=== PATIENT | male | born 1965 | race Caucasian/White ===

== ENCOUNTER 2023-12-14 11:07 | Emergency (ER) | payer SELFPAY ==
[~2023-12-14] VITALS: Ht 172.7 cm; Wt 65.9 kg
[2023-12-14] MEDS: SODIUM CHLORIDE 0.9% 1,000 ML IV ONE (11:48)
[2023-12-14 11:59] LABS: Magnesium 1.3 mg/dL (1.6-2.6)
[2023-12-14] MEDS ORDERED: THIAMINE HCL 100 MG TAB PO ONE (12:00)
[2023-12-14 12:13] LABS: Lactic Acid w/Reflex 2.6 mmol/L (0.4-2.0)
[2023-12-14 12:21] LABS: Blood Alcohol 447.9 mg/dL (<10)
[2023-12-14 12:38] LABS: Basophils # (auto) 0 10 ^3/uL (0-0.2); Eosinophils # (auto) 0 10 ^3/uL (0-0.8); Lymphocytes # (auto) 0.6 10 ^3/uL (0.4-5.4); Mean Corpuscular Hemoglobin 37.6 pg (28.0-32.0); Mean Corpuscular Hgb Conc. 33.7 g/dL (32.0-36.0); Mean Corpuscular Volume 111.6 fL (80.0-100.0); Monocytes # (auto) 0.4 10 ^3/uL (0-1.3); Neutrophils # (auto) 4.4 10 ^3/uL (1.6-8.6)
[2023-12-14 12:40] LABS: Basophils % (auto) 0.8 % (0.0-2.0); Eosinophils % (auto) 0.5 % (0.0-7.0); Hematocrit 44.2 % (41.0-53.0); Hemoglobin 14.9 g/dL (13.5-17.5); Lymphocytes % (auto) 10.2 % (10.0-50.0); Monocytes % (auto) 7.8 % (0.0-12.0); Neutrophils % (auto) 80.7 % (37.0-80.0); Red Blood Cells 3.96 10^6/uL (4.5-5.90); White Blood Cell 5.4 10^3/uL (4.4-10.8)
[2023-12-14 12:49] LABS: Alanine Aminotransferase 48 U/L (7-40); Albumin 4.6 g/dL (3.2-4.8); Alkaline Phosphatase 64 U/L (46-116); Anion Gap 11 (5-15); Aspartate Aminotransferase 110 U/L (13-40); BUN/Creatinine Ratio 29.5 (10.0-20.0); Bilirubin, Total 0.9 mg/dL (0.2-1.0); Blood Urea Nitrogen 18 mg/dL (9-23); Carbon Dioxide 26 mmol/L (20-30); Chloride 105 mmol/L (98-107); Glucose 94 mg/dL (74-106); Potassium 3.5 mmol/L (3.5-5.1); Sodium 142 mmol/L (136-145); Total Protein 7.2 g/dL (5.7-8.2)
[2023-12-14] MEDS ORDERED: SODIUM CHLORIDE 0.9% 1,000 ML IV ONE (13:15)
[2023-12-14 13:46] LABS: Macrocytosis Moderate; Platelet Estimate Decreased
[2023-12-14 14:52] VITALS: BP 128/76; PULSE 98; RESP 18; O2SAT 98
== END 2023-12-14 14:51 | disposition left against medical advice (07) ==
LOC: EDBD 11:07 → ER 11:18
DX: S01.81XA Laceration without foreign body of other part of head, initial encounter (principal); R93.89 Abnormal findings on diagnostic imaging of other specified body structures; R91.1 Solitary pulmonary nodule; E61.2 Magnesium deficiency; F10.129 Alcohol abuse with intoxication, unspecified; Y90.0 Blood alcohol level of less than 20 mg/100 ml
CPT/HCPCS: 36415; 70450; 71045; 72125; 80053; 80320; 82140; 82550; 83605; 83735; 83880; 84484; 85025; 96360; 99284; J7030

== ENCOUNTER 2025-01-06 22:42 | Emergency (ER) | payer SELFPAY ==
[~2025-01-06] VITALS: Ht 175.3 cm; Wt 60.4 kg
--- NOTE | 2025-01-06 23:40 | ED.PDOC ---
History of Present Illness HPI Comments 59 y/o M with a history of alcohol abuse and homelessness, presents c/o alcohol withdrawal symptoms that include: nausea, vomiting and generalized tremors. Pt states last alcohol drink was 1/2 pint of Vodka on 01/05/25. Patient also complains of left neck pain after sleeping on a bench the wrong way a few days ago. Denies any bloody or bilious vomitus, headache, dizziness, lightheadedness, or further associated symptoms. Patient states he is purposefully trying to stop drinking alcohol, but was told he needs to taper down slowly. Chief Complaint: ETOH Time Seen by MD: 23:20 Reviewed Notes: Nurses Notes, Medications, Allergies Allergies: Coded Allergies: NO KNOWN ALLERGIES (Unverified , 12/14/23) Home Meds Active Scripts Lorazepam (ATIVAN TABLET) 0.5 Mg Tb, 1 TAB PO TID PRN, #30 TAB Prn alcohol withdrawal symptoms Prov:ELIS SWANSON MD 01/07/25 Methocarbamol (Methocarbamol) 750 Mg Tab, 750 MG PO TID PRN, #30 TAB PRN muscle spasm Prov:ELIS SWANSON MD 01/07/25 Ibuprofen Micronized (Ibuprofen) 600 Mg Tab, 600 MG PO Q6HP PRN, #30 TAB Prn pain. Take with food. Prov:ELIS SWANSON MD 01/07/25 Ondansetron Odt 4MG Tab (ZOFRAN PO) 4 Mg Tb, 4 MG PO TID PRN, #30 TAB Prn nausea/vomiting ODT TAB-DISSOLVE IN MOUTH, THEN SWALLOW Prov:ELIS SWANSON MD 01/07/25 Chlordiazepoxide Hcl (Librium) 25 Mg Cp, 25 MG PO TID PRN, #30 CAP Prn alcohol withdrawal symptoms Prov:ELIS SWANSON MD 01/07/25 Information Source: Patient Mode of Arrival: Ambulatory Severity: Moderate Timing: Hours Duration: Since onset Prehospital treatment: None Past Medical History Past Medical History (Other): Alcohol dependence Surgical History: Denies all surgeries Family History Family History: Reviewed,noncontributory to illness Social History Smoker: Non-Smoker Alcohol: Heavy Drugs: Denies Drug Use Lives In: Homeless All Other Systems: Reviewed and Negative (Comprehensive review of systems are otherwise negative unless stated in HPI) Physical Exam General Appearance: No Apparent Distress HEENT: Other (Pupils and face symmetric. Moist mucous membranes.) Neck: Full Range of Motion, Normal Inspection, Supple, Other (Left lower lateral neck soft tissue tenderness/muscle spasm) Respiratory: Lungs Clear, No Accessory Muscle Use, No Respiratory Distress, Normal Breath Sounds Cardiovascular: No Edema, No JVD, Regular Rate/Rhythm Breast Exam: Deferred Gastrointestinal: Non Tender, Soft Genitalia: Deferred Pelvic: Deferred Rectal: Deferred Extremities: Normal inspection, Normal range of motion, Non-tender, No pedal edema Neurologic: Alert (Oriented x4), Normal Affect, Normal Mood, Other (Ambulatory without difficulty) Cerebellar Function: NOT DONE Reflexes: NOT DONE Skin: Dry, Normal Color, Warm Lymphatic: NOT DONE Was a procedure done? Was a procedure done?: No Differential Dx Considerations may include: alcohol withdrawal, drug abuse/dependency, delirium tremens, electrolyte imbalance, dehydration, viral syndrome, neck muscle spasm, among others X-Ray, Labs, Meds, VS Vital Signs Date Time Temp Pulse Resp B/P (MAP) Pulse Ox O2 Delivery O2 Flow Rate FiO2 01/07/25 02:20 98.3 83 15 130/90 (103) 98 98.3 01/07/25 00:00 98.3 76 18 130/85 (100) 98 98.3 01/06/25 23:10 97.9 98 18 139/97 (111) 98 97.9 01/06/25 23:10 Room Air* 0 21 Lab Test 01/06/25 23:45 Range/Units White Blood Count 8.6 4.4-10.8 10^3/uL Red Blood Count 4.07 L 4.5-5.90 10^6/uL Hemoglobin 14.2 13.5-17.5 g/dL Hematocrit 41.1 41.0-53.0 % Mean Corpuscular Volume 100.9 H 80.0-100.0 fL Mean Corpuscular Hemoglobin 34.9 H 28.0-32.0 pg Mean Corpuscular Hemoglobin Concent 34.5 32.0-36.0 g/dL Red Cell Distribution Width 15.2 H 11.8-14.3 % Platelet Count 218 140-450 10^3/uL Mean Platelet Volume 7.7 6.9-10.8 fL Neutrophils (%) (Auto) 80.8 H 37.0-80.0 % Lymphocytes (%) (Auto) 11.3 10.0-50.0 % Monocytes (%) (Auto) 7.0 0.0-12.0 % Eosinophils (%) (Auto) 0.4 0.0-7.0 % Basophils (%) (Auto) 0.5 0.0-2.0 % Neutrophils # (Auto) 7.0 1.6-8.6 10 ^3/uL Lymphocytes # (Auto) 1.0 0.4-5.4 10 ^3/uL Monocytes # (Auto) 0.6 0-1.3 10 ^3/uL Eosinophils # (Auto) 0 0-0.8 10 ^3/uL Basophils # (Auto) 0 0-0.2 10 ^3/uL Nucleated Red Blood Cells 0.0 % Sodium Level 141 136-145 mmol/L Potassium Level 3.7 3.5-5.1 mmol/L Chloride Level 99 98-107 mmol/L Carbon Dioxide Level 27 20-31 mmol/L Anion Gap 15 5-15 Blood Urea Nitrogen 13 9-23 mg/dL Creatinine 0.84 0.700-1.30 mg/dL Glomerular Filtration Rate Calc 99 >90 mL/min BUN/Creatinine Ratio 15.5 10.0-20.0 Serum Glucose 106 74-106 mg/dL Calcium Level 9.9 8.7-10.4 mg/dL Current Medications Medications (Trade) Dose Ordered Sig/Sarah Beth Route Start Time Stop Time Status Last Admin Lorazepam (Ativan Inj) 1 mg ONCE ONCE IV 01/06/25 23:30 01/06/25 23:31 DC 01/07/25 00:00 Ondansetron HCl (Zofran) 4 mg ONCE ONCE IV 01/06/25 23:30 01/06/25 23:31 DC 01/06/25 23:59 Chlordiazepoxide HCl (Librium Capsule) 50 mg ONCE ONCE PO 01/06/25 23:30 01/06/25 23:31 DC 01/07/25 00:00 Ketorolac Tromethamine (Toradol Injection) 30 mg ONCE ONCE IV 01/06/25 23:30 01/06/25 23:31 DC 01/07/25 00:00 Pantoprazole Sodium (Protonix) 40 mg ONCE ONCE IV 01/06/25 23:30 01/06/25 23:31 DC 01/06/25 23:59 Multivitamins (Mvi Tab) 1 tab ONCE ONCE PO 01/07/25 00:30 01/07/25 00:31 DC 01/07/25 00:23 Folic Acid 1 mg ONCE ONCE PO 01/07/25 00:30 01/07/25 00:31 DC 01/07/25 00:23 X-Ray, Labs, Meds, VS Comment 59-year-old male with a history of alcohol dependence brought in by self stating he is trying to cut down on alcohol consumption and is having withdrawal symptoms characterized by nausea, vomiting and feeling shaky Vitals remarkable for BP 139/97 Exam unremarkable except for left lower lateral neck soft tissue tenderness/spasm Rhythm strip independently interpreted by me: Sinus rhythm, rate 98, no ectopy. CBC and basic metabolic panel unremarkable Patient treated with the following in the ED: 1 L 0.9 normal saline with folate 1 mg IV, multivitamin p.o., Zofran 4 mg IV, Toradol 30 mg IV, Protonix 40 mg IV, Ativan 1 mg IV, Librium 50 mg p.o. On re-evaluation, patient states he no longer feel shaky, his neck pain has improved, he no longer has nausea, and he is tolerating p.o. fluids. Hospitalization was considered, however patient had rapid improvement of symptoms with treatment in the ED, and I no longer feel hospitalization is necessary. Patient now appears stable for discharge with close outpatient follow-up with his primary physician. Rx Ativan, Librium, ibuprofen, Robaxin Zofran Time of 1ST Reevaluation: 23:50 Reevaluation 1ST: Unchanged Time of 2ND Reevaluation: 01:19 Reevaluation 2ND: Improved Patient Education/Counseling: Diagnosis, Treatment, Need For Follow Up Family Education/Counseling: No Family Present SEPSIS Sepsis Screen Vital Signs Date Time Temp Pulse Resp B/P (MAP) Pulse Ox O2 Delivery O2 Flow Rate FiO2 01/07/25 02:20 98.3 83 15 130/90 (103) 98 98.3 01/07/25 00:00 98.3 76 18 130/85 (100) 98 98.3 01/06/25 23:10 97.9 98 18 139/97 (111) 98 97.9 01/06/25 23:10 Room Air* 0 21 Laboratory Tests Test 01/06/25 23:45 White Blood Count 8.6 10^3/uL (4.4-10.8) Medications Medications Dose Ordered Sig/Sarah Beth Route Start Time Stop Time Status Last Admin Dose Admin Chlordiazepoxide HCl 50 mg ONCE ONCE PO 01/06/25 23:30 01/06/25 23:31 DC 01/07/25 00:00 Folic Acid 1 mg ONCE ONCE PO 01/07/25 00:30 01/07/25 00:31 DC 01/07/25 00:23 Ketorolac Tromethamine 30 mg ONCE ONCE IV 01/06/25 23:30 01/06/25 23:31 DC 01/07/25 00:00 Lorazepam 1 mg ONCE ONCE IV 01/06/25 23:30 01/06/25 23:31 DC 01/07/25 00:00 Multivitamins 1 tab ONCE ONCE PO 01/07/25 00:30 01/07/25 00:31 DC 01/07/25 00:23 Ondansetron HCl 4 mg ONCE ONCE IV 01/06/25 23:30 01/06/25 23:31 DC 01/06/25 23:59 Pantoprazole Sodium 40 mg ONCE ONCE IV 01/06/25 23:30 01/06/25 23:31 DC 01/06/25 23:59 Departure 1 Departure Time of Disposition: 01:19 Impression: Primary Impression: Alcohol withdrawal Qualified Codes: F10.930 - Alcohol use, unspecified with withdrawal, uncomplicated Additional Impression: Neck muscle spasm Disposition: 01 HOME / SELF CARE / HOMELESS Condition: Stable Additional Instructions: Blood tests were unremarkable. I have prescribed medication for nausea, pain, and to prevent alcohol withdrawal. Follow-up with your primary doctor in 1-2 days. Return to ER for persistent or worsening symptoms. e-Prescriptions Lorazepam (ATIVAN TABLET) 0.5 Mg Tb 1 TAB PO TID PRN, #30 TAB Prn alcohol withdrawal symptoms Prov: ELIS SWANSON MD 01/07/25 Methocarbamol (Methocarbamol) 750 Mg Tab 750 MG PO TID PRN, #30 TAB PRN muscle spasm Prov: ELIS SWANSON MD 01/07/25 Ibuprofen Micronized (Ibuprofen) 600 Mg Tab 600 MG PO Q6HP PRN, #30 TAB Prn pain. Take with food. Prov: ELIS SWANSON MD 01/07/25 Ondansetron Odt 4MG Tab (ZOFRAN PO) 4 Mg Tb 4 MG PO TID PRN, #30 TAB Prn nausea/vomiting ODT TAB-DISSOLVE IN MOUTH, THEN SWALLOW Prov: ELIS SWANSON MD 01/07/25 Chlordiazepoxide Hcl (Librium) 25 Mg Cp 25 MG PO TID PRN, #30 CAP Prn alcohol withdrawal symptoms Prov: ELIS SWANSON MD 01/07/25 Discharged With: Self Critical Care Note Critical Care Time?: No Stability Stability form required: No Heart Score Heart Score: Heart Score Response (Comments) Value History N/A 0 EKG N/A 0 Age N/A 0 Risk Factors N/A 0 Troponin N/A 0 Total 0 I personally scribed for ELIS SWANSON MD ([email or web address]) on 01/06/25 at 23:40. Electronically submitted by Alvaro Lowery ([email or web address]). ELIS SWANSON MD Jan 06, 2025 23:40
[2025-01-06] MEDS: ONDANSETRON HCL 4 MG/2 ML VIAL IV ONE (23:59)
[2025-01-06] MEDS: PANTOPRAZOLE 40 MG/10 ML VIAL INJ IV ONE (23:59)
[2025-01-07] MEDS: KETOROLAC TROMETH 30 MG/ML 1ML VIAL IV ONE
[2025-01-07] MEDS: chlordiazePOXIDE HCL 25 MG CAP PO ONE
[2025-01-07] MEDS: LORazepam 2MG/ML-1ML VIAL IV ONE
[2025-01-07 00:16] LABS: Eosinophils # (auto) 0 10 ^3/uL (0-0.8); Eosinophils % (auto) 0.4 % (0.0-7.0); Monocytes # (auto) 0.6 10 ^3/uL (0-1.3)
[2025-01-07 00:18] LABS: Basophils # (auto) 0 10 ^3/uL (0-0.2); Basophils % (auto) 0.5 % (0.0-2.0); Hematocrit 41.1 % (41.0-53.0); Hemoglobin 14.2 g/dL (13.5-17.5); Lymphocytes % (auto) 11.3 % (10.0-50.0); Mean Corpuscular Hemoglobin 34.9 pg (28.0-32.0); Mean Corpuscular Hgb Conc. 34.5 g/dL (32.0-36.0); Mean Corpuscular Volume 100.9 fL (80.0-100.0); Neutrophils % (auto) 80.8 % (37.0-80.0); Platelet Count (auto) 218 10^3/uL (140-450); Red Blood Cells 4.07 10^6/uL (4.5-5.90); Red Cell Distribution Width 15.2 % (11.8-14.3); White Blood Cell 8.6 10^3/uL (4.4-10.8)
[2025-01-07] MEDS: FOLIC ACID 1 MG, MAGNESIUM SULF SDV 50% 8 MEQ, MULTIPLE VITAMIN 10 ML, THIAMINE INJ 100... INJ ONE (00:18)
[2025-01-07 00:21] LABS: Chloride 99 mmol/L (98-107); Potassium 3.7 mmol/L (3.5-5.1); Sodium 141 mmol/L (136-145)
[2025-01-07] MEDS: MULTIPLE VITAMIN TAB ONE (00:21)
[2025-01-07 00:22] LABS: Anion Gap 15 (5-15); Carbon Dioxide 27 mmol/L (20-31)
[2025-01-07 00:23] LABS: Calcium 9.9 mg/dL (8.7-10.4)
[2025-01-07] MEDS: FOLIC ACID 1 MG TAB PO ONE (00:23)
[2025-01-07] MEDS: MULTIPLE VITAMIN TAB PO ONE (00:23)
[2025-01-07 00:27] LABS: BUN/Creatinine Ratio 15.5 (10.0-20.0); Blood Urea Nitrogen 13 mg/dL (9-23)
[2025-01-07 00:33] LABS: Glucose 106 mg/dL (74-106)
[2025-01-07] MEDS ORDERED: ZOFR4T PO (01:25)
[2025-01-07] MEDS ORDERED: LORA-1121 PO (01:25)
[2025-01-07] MEDS ORDERED: METH-1182 PO (01:25)
[2025-01-07] MEDS ORDERED: CHL25C PO (01:25)
[2025-01-07] MEDS ORDERED: IBUP1TAB5 PO (01:25)
[2025-01-07 02:20] VITALS: BP 130/90; PULSE 83; RESP 15; TEMP 98.3; O2SAT 98
== END 2025-01-07 02:28 | disposition home or self-care (01) ==
LOC: ER 22:42
DX: M62.831 Muscle spasm of calf (principal); F10.930 Alcohol use, unspecified with withdrawal, uncomplicated; Z59.00 Homelessness unspecified; Y90.9 Presence of alcohol in blood, level not specified
CPT/HCPCS: 36415; 80048; 85025; 96374; 96375; 99284; J1885; J2060; J2405; J2470; J3411; J3475; J7030